=== PATIENT | male | born 1950 | race Hispanic/Latino ===

== ENCOUNTER → 2018-01-05 | Day surgery (SDC) | payer MEDICARE ==
[2017-12-31 09:44] LABS: EOSINOPHILS # (AUTO) 0.5 (0.0-0.4); EOSINOPHILS % 11.7 % (0.0-6.0); HEMATOCRIT 37.8 % (38.2-49.6); HEMOGLOBIN 11.5 g/dL (14.0-18.0); LYMPHOCYTES # (AUTO) 1.1 (1.0-3.2); LYMPHOCYTES % 26.1 % (18.0-39.1); MEAN CORPUSCULAR HEMOGLOBIN 27.5 pg (28-32); MEAN CORPUSCULAR HGB CONC 30.4 g/dL (31-35); MEAN CORPUSCULAR VOLUME 90.4 fL (81-99); MONOCYTES # (AUTO) 0.3 (0.2-0.8); MONOCYTES % 7.7 % (4.4-11.3); NEUTROPHILS # (AUTO) 2.2 (2.1-6.9); NEUTROPHILS % 53.3 % (38.7-80.0); PLATELET COUNT 228 x10e3/uL (140-360); RED BLOOD COUNT 4.18 x10e6/uL (4.3-5.7); RED CELL DISTRIBUTION WIDTH 15.7 % (11.7-14.4)
[~2018-01-05] MED LIST: ASPIRIN81 MG; ATENOLOL25 MG PO; ATORVASTATIN CA40 MG PO; CLOPIDOGREL75 MG PO; FERROUS SULFAT325 M1 PO; FUROSEMIDE40 MG PO; LISINOPRIL40 MG PO; MIDAZOLAM HCL 2 MG/2 ML VIAL ONE; NIFEDIPINE ER30 M1 PO; PROPOFOL IV EMULSION 10 MG/ML 50 ML VIAL ONE; SULFAMETHOXAZO1 EAC1 PO
--- OUTSIDE RECORDS SUMMARY | 2018-01-05 12:25 | XMS REPORT | Summary of Care ---
Author Author Buddy WATT, [employer] Organization Unknown Address Unknown Phone Unavailable Care Team Providers Care Fitness Sales Consultant Name Role Phone JESSICA CRUZ M.D. Unavailable Unavailable NANCY BOWDEN [place], JESSICA Abernathy Unavailable Unavailable Unavailable Unavailable Functional Status Name Dates Details Functional status health issues are not documented Status: Name Dates Details Cognitive status health issues are not documented Status: Problems Name Dates Details Cardiomyopathy (425.4) Status: Active ASD (atrial septal defect) (745.5, Q21.1) Status: Active CAD (coronary artery disease) (414.00, I25.10) Status: Active Essential (primary) hypertension (401.9, I10) Status: Active Hyperlipidemia (272.4, E78.5) Status: Active Medications Name Dates Details Aspirin 81 MG TABS TAKE 1 TABLET DAILY. JESSICA CRUZ M.D. Active Clopidogrel Bisulfate 75 MG Oral Tablet TAKE 1 TABLET BY MOUTH EVERY DAY * Quantity: 90 Refills: 3 JESSICA CRUZ M.D. * Start : 01-Sep-2011 Active Lisinopril 40 MG Oral Tablet TAKE 1 TABLET BY MOUTH EVERY DAY * Quantity: 90 Refills: 3 JESSICA CRUZ M.D. * Start : 03-Jan-2018 Active Furosemide 40 MG Oral Tablet TAKE 1 TABLET BY MOUTH EVERY DAY * Quantity: 90 Refills: 3 JESSICA CRUZ M.D. * Start : 06-Feb-2011 Active Atorvastatin Calcium 40 MG Oral Tablet TAKE 1 TABLET BY MOUTH EVERY DAY * Quantity: 90 Refills: 3 JESSICA CRUZ M.D. * Start : 23-Nov-2012 Active Atenolol 25 MG Oral Tablet TAKE 1 TABLET DAILY DIRECTED. * Quantity: 90 Refills: 3 JESSICA CRUZ M.D. * Start : 26-Aug-2016 Active NIFEdipine ER Osmotic Release 30 MG Oral Tablet Extended Release 24 Hour TAKE 1 TABLET DAILY. * Quantity: 90 Refills: 3 JESSICA CRUZ M.D. * Start : 26-Aug-2016 Active Aspirin 81 MG Oral Tablet Delayed Release TAKE 1 TABLET DAILY * Quantity: 90 Refills: 3 JESSICA CRUZ M.D. * Start : 24-Nov-2017 Active Allergies and Adverse Reactions Name Dates Details Adhesive Tape TAPE (Allergy) Status: Active Procedures Procedure Dates Details [N] Nuclear Test-Exercise Treadmill Stress Perfusion Date: 24-Nov-2017 [N] Nuclear Test-Exercise Treadmill Stress Perfusion Date: 24-Nov-2017 [[facility]] CBC (INCLUDES DIFF/PLT) Date: 24-Nov-2017 [[facility]] LIPID PANEL Date: 24-Nov-2017 [[facility]] CMP W/EGFR Date: 24-Nov-2017 Immunization Name Dates Details Immunizations not documented Social History Name Dates Details - Status: Name Dates Details Former smoker Vital Signs Date Test Result Details No Known Vitals to report Results Date Description Value Details Results not documented Plan of Care Name Dates Details Planned Observations Planned Goals not documented Planned Encounters Appointment; MICHAEL GALEANA On: 16-Nov-2018 8:45 Appointment; JESSICA CRUZ M.D. On: 23-Nov-2018 13:10 Interventions Provided Medication Changes* Lisinopril 40 MG Oral Tablet - Renew Instructions Name Dates Details Instructions not documented Encounters Appointment; MICHAEL GALEANA Encounter Diagnosis: Problem not documented On: 26-Aug-2016 8:30 Appointment; JESSICA CRUZ M.D. Encounter Diagnosis: Problem not documented On: 26-Aug-2016 13:10 Appointment; JESSICA CRUZ M.D. Encounter Diagnosis: Problem not documented On: 25-Nov-2016 13:30 Appointment; JESSICA CRUZ M.D. Encounter Diagnosis: Problem not documented On: 24-Nov-2017 13:10
[2018-01-05 15:37] VITALS: BP 119/65
--- NOTE | 2018-01-05 15:46 | Operative Report ---
DATE OF PROCEDURE: January 05, 2018 REFERRING PHYSICIAN: Dr. Chikis Delvalle PROCEDURE PERFORMED: Colonoscopy and polypectomy. INDICATIONS FOR COLONOSCOPY: Colorectal cancer screening. MEDICATION: Patient was done under MAC. Please see anesthesiologist's note. PROCEDURE: With the patient in the left lateral decubitus position, the flexible fiberoptic Olympus colonoscope was inserted into the rectum with ease. The scope could not be advanced beyond the distal sigmoid colon as the sigmoid colon was sharply angulated and somewhat fixed. The scope was then withdrawn cuco an EGD scope was inserted into the rectum and advanced to the distal sigmoid colon. Approximately, an 8 mm pedunculated polyp was noted that was snared. The sharply angulated area was negotiated with some difficulty with the EGD scope, which eventually traversed the site and was advanced all the way to the cecum. Diverticular disease was noted throughout the colon. Otherwise, the ascending and the transverse were within normal limits. Three polyps were hot biopsied from the descending colon. One polyp was snared from the sigmoid colon. The rectum appeared to be within normal limits. The scope was then retroflexed into the distal rectum and moderate size internal hemorrhoids were noted, none of which was actively bleeding. The scope was then straightened out. It was subsequently withdrawn. Patient tolerated the procedure well. IMPRESSION 1. Sigmoid colon sharply angulated and negotiated only with the esophagogastroduodenoscopy scope and suboptimally visualized. 2. Fam diverticulosis. 3. Descending colon polyps times 3, hot biopsied. 4. Sigmoid colon polyp times 1, snared. 5. Internal hemorrhoids, none actively bleeding. PLAN: Follow up histology. Initiate high-fiber and low-fat diet. Initiate high-fiber supplement. Patient might benefit from a followup colonoscopy in 3 years. Job#: [id number] RI cc: CHIKIS DELVALLE MD
== END | disposition home or self-care (01) ==
LOC: ENDO 12:22
PROVIDERS: ATTEND Internal Medicine Gastroenterology
DX: Z12.11 Encounter for screening for malignant neoplasm of colon (principal); K63.5 Polyp of colon; K56.699 Other intestinal obstruction unspecified as to partial versus complete obstruction; K57.30 Diverticulosis of large intestine without perforation or abscess without bleeding; K64.8 Other hemorrhoids; K59.00 Constipation, unspecified; K92.1 Melena; I25.10 Atherosclerotic heart disease of native coronary artery without angina pectoris; I10 Essential (primary) hypertension; E78.5 Hyperlipidemia, unspecified; R00.1 Bradycardia, unspecified; I45.10 Unspecified right bundle-branch block; Z01.810 Encounter for preprocedural cardiovascular examination; Z01.812 Encounter for preprocedural laboratory examination; Z79.02 Long term (current) use of antithrombotics/antiplatelets; Z79.82 Long term (current) use of aspirin; Z86.73 Personal history of transient ischemic attack (TIA), and cerebral infarction without residual deficits; Z95.5 Presence of coronary angioplasty implant and graft
CPT/HCPCS: 36415; 45384; 45385; 85025; 88305; 93005; J2250

== ENCOUNTER → 2018-01-31 | Day surgery (SDC) | payer MEDICARE ==
[2018-01-27 08:54] LABS: BASOPHILS % 0.5 % (0.0-1.0); EOSINOPHILS # (AUTO) 0.7 (0.0-0.4); HEMATOCRIT 41.4 % (38.2-49.6); HEMOGLOBIN 12.9 g/dL (14.0-18.0); LYMPHOCYTES # (AUTO) 1.6 (1.0-3.2); LYMPHOCYTES % 25.8 % (18.0-39.1); MEAN CORPUSCULAR HEMOGLOBIN 28.1 pg (28-32); MEAN CORPUSCULAR HGB CONC 31.2 g/dL (31-35); MEAN CORPUSCULAR VOLUME 90.2 fL (81-99); MONOCYTES # (AUTO) 0.5 (0.2-0.8); MONOCYTES % 7.9 % (4.4-11.3); NEUTROPHILS # (AUTO) 3.3 (2.1-6.9); NEUTROPHILS % 54.6 % (38.7-80.0); PLATELET COUNT 237 x10e3/uL (140-360); RED BLOOD COUNT 4.59 x10e6/uL (4.3-5.7); RED CELL DISTRIBUTION WIDTH 15.3 % (11.7-14.4)
[~2018-01-31] MED LIST changes: +FENTANYL CITRATE/PF 100MCG/2 ML INJ ONE; +LIDOCAINE HCL 2% LOCAL INJ 5 ML SDV VIAL INJ ONE
--- OUTSIDE RECORDS SUMMARY | 2018-01-31 14:16 | XMS REPORT | Summary of Care ---
Author Author Buddy WATT, [employer] Organization Unknown Address Unknown Phone Unavailable Care Team Providers Care Professor In Family Studies Name Role Phone JESSICA CRUZ M.D. Unavailable Unavailable NANCY BOWDEN [place], JESSICA Abernathy Unavailable Unavailable Unavailable Unavailable Functional [...] 3 JESSICA CRUZ M.D. * Start : 17-Jan-2018 Active Lisinopril 40 MG Oral Tablet TAKE 1 TABLET BY MOUTH EVERY DAY * Quantity: 90 Refills: 3 JESSICA CRUZ M.D. * Start : 03-Jan-2018 Active Furosemide 40 MG Oral Tablet TAKE 1 TABLET BY MOUTH EVERY DAY * Quantity: 30 Refills: 3 JESSICA CRUZ M.D. * Start : 17-Jan-2018 Active Atorvastatin Calcium 40 MG Oral Tablet [...] Date: 24-Nov-2017 [[facility]] LIPID PANEL Date: 24-Nov-2017 [facility] CMP W/EGFR Date: 24-Nov-2017 Immunization Name Dates [...] On: 23-Nov-2018 13:10 Interventions Provided Medication Changes* Clopidogrel Bisulfate 75 MG Oral Tablet - Renew * Furosemide 40 MG Oral Tablet - Renew Instructions [...]
[2018-01-31 16:55] VITALS: BP 144/89
--- NOTE | 2018-01-31 17:17 | Operative Report ---
DATE OF PROCEDURE: January 31, 2018 REFERRING PHYSICIAN: Dr. Chikis Nevarez. PROCEDURE PERFORMED: Esophagogastroduodenoscopy with biopsies. INDICATIONS FOR PROCEDURE: Iron deficiency anemia. MEDICATION: Patient was done under MAC. Please see anesthesiologist's note. PROCEDURE: With the patient in the left lateral decubitus position, the flexible fiberoptic Olympus gastroscope was introduced into the esophagus under direct visualization without any difficulty. There was some patchy erythema noted in distal esophagus. GE junction was somewhat nodular and that was biopsied. The scope was then advanced with ease into the stomach traversing a small sliding hiatal hernia. Mucosa overlying the antrum and the body revealed some patchy erythema and moderate edema and biopsies were obtained and sent to stain for H. pylori. Pylorus appeared to be of normal contour and shape and there was a minute pyloric channel ulcer and it was traversed with ease and the scope was advanced all the way to the 2nd portion of the duodenum. Biopsies were obtained from the proximal 2nd portion and the duodenal bulb to rule out sprue. The junction between the bulb and 2nd portion were somewhat sharply angulated and suboptimally visualized. The scope was then withdrawn back into the stomach and retroflexed and mucosa overlying the fundus and the cardia appeared to be within normal limits. The scope was then straightened out. It was subsequently withdrawn. Patient tolerated procedure well. IMPRESSION: 1. Distal esophagitis. 2. GE junction nodular, biopsied. 3. Small sliding hiatal hernia. 4. Gastritis biopsied. Biopsy sent stain for H. pylori. 5. Pyloric channel ulcer, minute. 6. Rule out sprue. PLAN: Follow up histology. Initiate Protonix 40 mg 1 p.o. q.a am a.c. Job#: [id number] cc: DR. CHIKIS NEVAREZ
== END | disposition home or self-care (01) ==
LOC: ENDO 14:13
PROVIDERS: ATTEND Internal Medicine Gastroenterology
DX: K25.9 Gastric ulcer, unspecified as acute or chronic, without hemorrhage or perforation (principal); D50.9 Iron deficiency anemia, unspecified; Q22.1 Congenital pulmonary valve stenosis; I25.10 Atherosclerotic heart disease of native coronary artery without angina pectoris; I10 Essential (primary) hypertension; E78.5 Hyperlipidemia, unspecified; Z87.891 Personal history of nicotine dependence; F10.10 Alcohol abuse, uncomplicated; Z86.73 Personal history of transient ischemic attack (TIA), and cerebral infarction without residual deficits; K20.9 Esophagitis, unspecified; K44.9 Diaphragmatic hernia without obstruction or gangrene; B96.81 Helicobacter pylori [H. pylori] as the cause of diseases classified elsewhere; K29.50 Unspecified chronic gastritis without bleeding
CPT/HCPCS: 36415; 43239; 85025; 88305; 88312; 93005; J2001; J2250